=== PATIENT | female | born 1995 | race Caucasian/White ===

== ENCOUNTER → 2018-01-14 | Outpatient (CLI) | payer BC ==
[~2018-01-14] MED LIST: BCPILLS PO
== END | disposition home or self-care (01) ==
LOC: C.PAPS 18:05
PROVIDERS: ATTEND Physician Assistant
DX: Z01.419 Encounter for gynecological examination (general) (routine) without abnormal findings (principal)

== ENCOUNTER 2020-06-25 04:25 | Inpatient (IN) ==
[2020-06-25] MEDS ORDERED: OXYTOCIN 30 UNITS/500 ML BAG IV PRN ×2 (04:58→15:40)
[2020-06-25 05:17] LABS: Hemoglobin 13.6 g/dL (12.0-16.0); Mean Corpuscular Hemoglobin 30.4 pg (25-34); Mean Corpuscular Volume 87.2 fL (80-100); Mean Platelet Volume 11.8 fL (7.4-10.4); Platelet Count 179 K/uL (130-400); RDW Coefficient of Variation 12.5 % (11.5-14.5); RDW Standard Deviation 40.1 fL (36.4-46.3); Red Blood Count 4.47 M/uL (4.2-5.4); White Blood Count 10.51 K/uL (4.8-10.8)
[2020-06-25 05:35] LABS: Mean Corpuscular Hgb Conc 34.9 g/dL (32-36)
[2020-06-25] MEDS ORDERED: ePHEDrine sulfate 50 MG/ML AMP ONE (07:25)
[2020-06-25] MEDS ORDERED: BUPIVACAINE 0.25% 30 ML VIAL ONE (07:25)
[2020-06-25] MEDS ORDERED: fentaNYL 2MCG/ML ROPIVACAINE 1.25MG/ML 100 ML BAG EPI ONE (07:26)
[2020-06-25] MEDS ORDERED: fentaNYL citrate 100 MCG/2 ML VIAL ONE (07:26)
[2020-06-25] MEDS: LACTATED RINGER'S 1,000 ML IV PRN ×2 (07:30→08:32)
--- NOTE | 2020-06-25 08:16 | Anesthesiology Consultation ---
Date of Service June 25, 2020 Assessment & Plan (1) Encounter for pre-operative examination: Chart Review Chart Review: Patient NOT seen in Pre Admission Testing and Acceptable Risk for Labor Epidural Consults Requested none ASA ASA2 Proposed Anesthesia Anesthesia Type: Labor Epidural Risk / Benefits Reviewed With: PT / POA / Parent / Guardian, Accepts Plan and Informed Consent Obtained History Height/Weight Height: 5 ft 4 in Weight: 91.626 kg Allergies Allergy/AdvReac Type Severity Reaction Status Date / Time No Known Allergies Allergy Verified 06/22/20 16:29 Medications Home Medications Medication Instructions Recorded Confirmed Last Taken prenat.vits,indio,vjv-ndyn-ujruq 1 tab PO DAILY 11/20/19 06/25/20 06/24/20 Active Medications Generic Name Dose Route Start Last Admin Trade Name Freq PRN Reason Stop Dose Admin Lactated Ringer's 1,000 mls @ 125 mls/hr 06/25/20 04:58 06/25/20 08:32 Lr IV 06/27/20 04:57 125 mls/hr .Q8H PRN Administration L&D Protocol Protocol NPO Date Last Intake of Fluids: 06/25/20 Time Last Intake of Fluids: 08:56 Date Last Intake of Solids: 06/24/20 Time Last Intake of Solids: 17:00 Past Medical History Medical History Urinary tract infection Varicella vaccine Exercise / Class Metabolic Activity II 4-5 Yardwork/Stairs/Walk up hill Past Family History Family History Grandfather (Maternal) Dyslipidemia Other Hypertension Past Surgical History Surgical History [place] teeth removed Past Anesthesia History No Hx of Anesthesia Complications History of PONV No Hx of PONV Social History Smoking Status: Never smoker Hx Alcohol Use: No Hx Substance Use: No Review of Systems Negative for chest pain or shortness of breath. Patient denies history of abnormal bleeding or bleeding disorder. Patient denies active use of anticoagulants other than low dose aspirin. Patient denies numbness, tingling or weakness in lower extremities. Physical Exam Vital Signs Last Vital Signs Temp 36.9 C 06/25/20 07:05 Pulse 85 06/25/20 07:58 Resp 20 06/25/20 07:05 BP 124/85 06/25/20 07:53 Pulse Ox 99 06/25/20 07:58 Constitutional not obese (gravid) ENMT Mouth: no TMJ abnormality and oral opening not small Thyromental Distance: > or= 3.5 Finger Breadths Mallampati Class: II Neck normal visual inspection; neck extension not limited Respiratory normal respiratory effort Auscultation: lungs clear to auscultation bilaterally Cardiovascular Rate/Rhythm: regular rate and regular rhythm Heart Sounds: no murmur Neurologic moves all extremities Motor/Sensory: no sensory deficit Psychiatric Orientation: alert and oriented x 3 Testing Laboratory Results 06/25/20 05:05
--- NOTE | 2020-06-25 08:40 | History & Physical Report ---
Date of Service June 25, 2020 Assessment & Plan (1) Supervision of normal intrauterine in primigravida: 24yo G1 at 40 weeks GA. Labor. 1. Fetus: Cat 1 2. Labor: Pregressing. 3. Vitals: WNL 4. GBS negative Admission and Anticipated Discharge Date Admission Date: June 25, 2020 History of Present Illness Primary Care Provider: Sterling Al, 24yo G1 at 40 weeks GA. Presents for labor. Denies LOF, VB. Good FM. uncomplicated to date Chlamydia trachomatis RNA NOT DETECTED (NOT DETECTED) 11/27/19 Neisseria gonorrhoeae RNA NOT DETECTED (NOT DETECTED) 11/27/19 Labs Reviewed: declines cf/sma and panorama/quad 01/11/20- Blood Type A positive Antibody screen neg H&H 40.51/13.6 PLT 227 Rubella Immune RPR Non-reactive HIV Neg Hep B surface AG non-reactive Urine Culture low counts skin elias 1 hr gtt 78 28 week labs--ua neg, gtt 86, h/h 12.9/36.7 Allergies Allergy/AdvReac Type Severity Reaction Status Date / Time No Known Allergies Allergy Verified 06/22/20 16:29 Home Medications Home Medications Medication Instructions Recorded Confirmed Type prenat.vits,indio,eqd-hmym-nztxd 1 tab PO DAILY 11/20/19 06/25/20 History Patient History Medical History Urinary tract infection Varicella vaccine Surgical History [place] teeth removed Family History Grandfather (Maternal) Dyslipidemia Other Hypertension Social History (Updated 11/20/19 @ 15:09 by Amina Henry) Smoking Status: Never smoker Second Hand Exposure: No; Hx Alcohol Use: No Hx Substance Use: No Preferred Language: Peruvian Beliefs That Will Affect Care: None marital status: marital status details: Db Bennett (22) [phone] Current Living Situation: Spouse Current Living Situation Comment: lives with spouse, no pets current occupational status: employed 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 Other Information That Helps Us Care for You: No Feels Safe at Home: Yes Safety Concerns: Feels Safe At This Time Assistive Devices: None Physical Exam Genitourinary: OB Exam Abdomen: + vertex Manual OB Exam: + cervical dilati on 4 cm, + cervical effacement 100% and + station -1 OB Exam Monitor Tracing: + external FHT monitor used, + external uterine monitor used, + category I and + normal FHT variability Results & Data ([facility]) Vital Signs (Past 12 Hours) Vital Signs Temp Pulse Resp BP Pulse Ox 06/25/20 08:33 91 H 99 06/25/20 08:28 95 H 98 06/25/20 08:23 113 H 98 06/25/20 08:18 95 H 99 06/25/20 08:13 89 100 06/25/20 08:08 92 H 100 06/25/20 08:03 92 H 100 06/25/20 07:58 85 99 06/25/20 07:53 91 H 124/85 100 06/25/20 07:05 36.9 C 116 H 20 128/86 06/25/20 04:42 90 126/87 06/25/20 04:37 36.9 C 103 H 18 158/101 H 06/25/20 04:35 36.9 C 103 H 18 158/101 H Coding Level of Care Code None Diagnoses Supervision of normal intrauterine in primigravida Z34.00
[2020-06-25] MEDS ORDERED: PROMETHAZINE HCL 25 MG in SODIUM CHLORIDE 0.9% 50 ML IV PRN (09:12)
[2020-06-25] MEDS ORDERED: diphenhydrAMINE 50 MG/ML VIAL IV PRN (09:12)
[2020-06-25] MEDS ORDERED: NALOXONE HCL 0.4 MG/1 ML VIAL/CARP IV PRN (09:12)
[2020-06-25] MEDS ORDERED: ONDANSETRON INJ 2 MG/ML 2 ML VIAL IV PRN (09:12)
[2020-06-25] MEDS ORDERED: NALOXONE HCL 1 MG in SODIUM CHLORIDE 0.9% 1000ML 1,000 ML IV PRN (09:12)
[2020-06-25] MEDS ORDERED: fentaNYL 2MCG/ML ROPIVACAINE 1.25MG/ML 100 ML BAG EPI PRN (09:12)
[2020-06-25] MEDS ORDERED: ePHEDrine sulfate 50 MG/ML AMP IV PRN (09:12)
[2020-06-25] MEDS: CALCIUM CARBONATE 500 MG CHEWABLE TAB PO PRN ×2 (10:24→14:15)
--- NOTE | 2020-06-25 15:24 | Delivery Summary ---
Vaginal Delivery Summary Date of Service June 25, 2020 Vaginal Delivery Summary Spontaneous vaginal delivery over a second-degree tear patient had an epidural pushed baby in left occiput anterior position clear fluid no nuchal cord mouth and nares suctioned with bulb gentle traction no excessive force live vigorous cord clamped and cut cord blood obtained placenta removed with gentle traction IV Pitocin started second-degree tear repaired with 3-0 Vicryl sponge and instrument counts correct estimated blood loss 300 mL [facility] Vaginal Delivery Charge Procedure Anesthesia type: Epidural Labor Stage Duration Labor - Stage 1 Duration: 9.08 Labor - Stage 2 Duration: 3.35 Labor - Stage 3 Duration: 4 Total Length of Labor: 12.50
[2020-06-25] MEDS ORDERED: BENZOCAINE 20% AER SPR 82.5 GM CAN EXT PRN (15:40)
[2020-06-25] MEDS ORDERED: LACTATED RINGER'S 1,000 ML IV SCH (15:40)
[2020-06-25] MEDS ORDERED: bisacodyL 10 MG SUPP PR PRN (15:40)
[2020-06-25] MEDS ORDERED: SUPERCREAM 0.870% 15 GM JAR EXT PRN (15:40)
[2020-06-25] MEDS ORDERED: HYDROCORTISONE ACETATE 25 MG SUPP PR PRN (15:40)
[2020-06-25] MEDS ORDERED: DIPHTHERIA/TETANUS/PERTUSSIS 0.5 ML SYR/VIAL IM ONE (15:40)
[2020-06-25] MEDS ORDERED: ACETAMINOPHEN 325 MG TAB PO PRN (15:40)
[2020-06-25] MEDS ORDERED: oxyCODONE/ACETAMINOPHEN 5mg/325mg TAB PO PRN (15:40)
--- NOTE | 2020-06-25 15:58 | Anesthesia Procedure Note ---
Date of Service June 25, 2020 Anesthesia Post Epidural Note Vital Signs Vital Signs: Temp Pulse Resp BP Pulse Ox 37.1 C 100 H 20 133/78 98 06/25/20 13:02 06/25/20 15:47 06/25/20 15:31 06/25/20 15:47 06/25/20 14:53 Notes Mental Status: alert / awake / arousable and participated in evaluation Nausea / Vomiting: adequately controlled Pain: adequately controlled Airway Patency, RR, SpO2: stable & adequate BP & HR: stable & adequate Hydration State: stable & adequate Neuraxial Anesthesia: was administered and sensory block is resolving Anesthetic Complications: no major complications apparent and Pt Satisfied with anesthetic care Epidural: Removed without complications and With tip intact Notes: Epidural site clean, dry and intact. No signs of edema, erythema or bruising at insertion site. Pt instructed to request anesthesia if she has residual lower extremity numbness or if she develops lower extremity pain or weakness, back pain or headache.
[2020-06-25] MEDS: IBUPROFEN 600 MG TAB PO PRN (20:26)
[2020-06-25] MEDS: DOCUSATE SODIUM 100 MG CAP PO SCH (20:27)
[2020-06-26 06:34] LABS: Hematocrit (blood only) 32.7 % (37-47); Hemoglobin 11.4 g/dL (12.0-16.0); Mean Corpuscular Hgb Conc 34.9 g/dL (32-36); Mean Corpuscular Volume 88.9 fL (80-100); Mean Platelet Volume 11.2 fL (7.4-10.4); Platelet Count 133 K/uL (130-400); RDW Coefficient of Variation 12.9 % (11.5-14.5); RDW Standard Deviation 41.5 fL (36.4-46.3); Red Blood Count 3.68 M/uL (4.2-5.4); White Blood Count 11.69 K/uL (4.8-10.8)
--- NOTE | 2020-06-26 06:35 | Obstetrical Progress Note ---
Date of Service June 26, 2020 Assessment & Plan (1) Supervision of normal intrauterine in primigravida: Doing well no extremity pain breast-feeding continue current care Subjective Ambulation: ambulating normally Voiding: no voiding problems Diet Tolerance:: regular diet Lochia:: Small Feeding Type:: breast feeding Current Pain Level(1-10): 2 Results & Data ([facility]) Vital Signs (Past 12 Hours) Vital Signs Temp Pulse Resp BP 06/26/20 04:00 97.9 F 78 18 110/71 06/25/20 23:35 98.1 F 73 16 119/75 06/25/20 20:10 98.6 F 96 H 18 121/79 06/25/20 18:14 99.9 F H 99 H 20 115/80
[2020-06-26] MEDS ORDERED: NON-FORMULARY MEDICATION (Prenat.Vits,Cal,Min-Iron-Folic 1 TAB) PO SCH (09:00)
[2020-06-26] MEDS: PRENATAL VITAMIN 1 TAB PO SCH (09:28)
[2020-06-26] MEDS: IBUPROFEN 600 MG TAB PO PRN ×2 (09:28→19:56)
[2020-06-26] MEDS: DOCUSATE SODIUM 100 MG CAP PO SCH ×2 (09:28→19:57)
[2020-06-26] MEDS ORDERED: bisacodyL 5 MG TABEC PO SCH (20:00)
[2020-06-27 06:27] LABS: Hematocrit (blood only) 32.7 % (37-47); Hemoglobin 11.3 g/dL (12.0-16.0)
--- NOTE | 2020-06-27 07:57 | Obstetrical Progress Note ---
Date of Service <Song Sethi MD - Last Filed: 06/27/20 08:00> June 27, 2020 Assessment & Plan <Song Sethi MD - Last Filed: 06/27/20 08:00> (1) : - PNL: Rh pos, RI, GBS neg, COVID neg - Feels well today. Eating well, voiding well, ambulating well - Pain well controlled with ibuprofen 600mg Q4H PRN - Routine care - After discharge will have 6 week follow-up with Dr. Ham - Ready for D/C today Subjective <Song Sethi MD - Last Filed: 06/27/20 08:00> Haleigh is a 24 y/o female who is PPD #2 following at 39+ weeks. She reports feeling well overall this morning. Light abdominal cramping and 0/10 pain well managed on analgesics. Voiding well. Tolerating meals overnight without difficulty. Patient has been able to ambulate some. Is passing gas and had bowel movement. Has persistent lochia with some improvement this morning. Currently bottle feeding. Review of Systems Denies fever or chills. Denies shortness of breath or cough. Denies chest pain. Denies breast pain. Denies dysuria. Denies leg pain or leg swelling. Denies headache or changes in vision. Physical Exam <Song Sethi MD - Last Filed: 06/27/20 08:00> General: Alert, oriented. No acute distress. Cardiac: Regular rate and rhythm. No murmurs. Respiratory: Clear to auscultation bilaterally a/p, no wheezes/rales/rhonchi. No increased work of breathing. Symmetrical chest rise. No respiratory distress. Abdomen: Soft, nontender, nondistended. Bowel sounds present. Uterus: Uterine fundus firm, palpable 2 cm below umbilicus. Lower Extremities: No lower extremity edema or swelling. No deep calf pain. Jeferson's negative bilaterally. Results & Data ([facility]) <Song Sethi MD - Last Filed: 06/27/20 08:00> Vital Signs (Past 12 Hours) Vital Signs Temp Pulse Resp BP Pulse Ox 10/18/20 23:10 36.8 C 78 18 112/69 99 <Edu Ham MD, FACOG - Last Filed: 06/27/20 08:16> Co-Signing Physician Notes Resident Physician Supervision Note: I was present with [Name of resident] during the history and exam. I discussed the case with the resident and agree with the findings and plan as documented in the note. Any exceptions or clarifications are listed here: [None] Documented By: Edu Ham MD, FACOG Resident Activity Tracking <Song Sethi MD - Last Filed: 06/27/20 08:00> Resident Involvement: Resident Care Provided Care Provided: OB Delivery
[2020-06-27] MEDS: PRENATAL VITAMIN 1 TAB PO SCH (09:18)
[2020-06-27] MEDS: DOCUSATE SODIUM 100 MG CAP PO SCH (09:18)
== END 2020-06-27 11:25 | disposition home or self-care (01) | DRG 807 ==
LOC: OPB 04:25 → 4S1 04:27 → 4S2 18:29

== ENCOUNTER 2022-11-14 21:54 | Inpatient (IN) ==
[2022-11-15] MEDS ORDERED: OXYTOCIN 30 UNITS/500 ML BAG IV PRN ×2 (00:01→05:28)
[2022-11-15] MEDS ORDERED: LIDOCAINE 1% LOCAL 20 ML VIAL INFIL PRN (00:01)
[2022-11-15 01:03] LABS: Hematocrit (blood only) 35.4 % (37.0-47.0); Hemoglobin 12.6 g/dl (12.0-16.0); Mean Corpuscular Hemoglobin 30.9 pg (25.0-34.0); Mean Corpuscular Hgb Conc 35.6 g/dL (32.0-36.0); Mean Corpuscular Volume 86.8 fL (80.0-100.0); Mean Platelet Volume 11.8 fL (9.4-12.4); Platelet Count 181 K/uL (130-400); RDW Coefficient of Variation 12.4 % (11.5-14.5); Red Blood Count 4.08 M/uL (4.20-5.40); White Blood Count 9.99 K/ul (4.8-10.8)
[2022-11-15] MEDS: LACTATED RINGER'S 1,000 ML IV PRN ×2 (01:09→02:36)
[2022-11-15] MEDS ORDERED: ePHEDrine sulfate 50 MG/ML AMP ONE (01:13)
[2022-11-15] MEDS ORDERED: fentaNYL citrate 100 MCG/2 ML VIAL ONE (01:14)
[2022-11-15] MEDS ORDERED: SODIUM CHLORIDE 0.9% INJ 10 ML VIAL ONE (01:14)
[2022-11-15] MEDS ORDERED: BUPIVACAINE 0.25% 30 ML VIAL ONE (01:14)
[2022-11-15] MEDS ORDERED: LIDOCAINE 2%/EPINEPHRINE 1:200,000 20 ML SDV ONE (01:14)
[2022-11-15] MEDS ORDERED: fentaNYL 2MCG/ML ROPIVACAINE 1.25MG/ML 100 ML BAG EPI ONE (01:15)
[2022-11-15] MEDS ORDERED: ONDANSETRON INJ 2 MG/ML 2 ML VIAL IV PRN (01:35)
[2022-11-15] MEDS ORDERED: ePHEDrine sulfate 50 MG/ML AMP IV PRN (01:35)
[2022-11-15] MEDS ORDERED: NALOXONE HCL 1 MG in SODIUM CHLORIDE 0.9% 1000ML 1,000 ML IV PRN (01:35)
[2022-11-15] MEDS ORDERED: fentaNYL 2MCG/ML ROPIVACAINE 1.25MG/ML 100 ML BAG EPI PRN (01:35)
[2022-11-15] MEDS ORDERED: diphenhydrAMINE 50 MG/ML VIAL IV PRN (01:35)
[2022-11-15] MEDS ORDERED: NALBUPHINE HCL INJ 10 MG/ML AMP IV PRN (01:35)
[2022-11-15] MEDS ORDERED: NALOXONE HCL 0.4 MG/1 ML VIAL/CARP IV PRN (01:35)
--- NOTE | 2022-11-15 01:35 | Anesthesiology Consultation ---
Date of Service November 15, 2022 Assessment & Plan ASA ASA2 Proposed Anesthesia Anesthesia Type: Labor Epidural Risk / Benefits Reviewed With: PT / POA / Parent / Guardian, Accepts Plan and Informed Consent Obtained History Height/Weight Height: 5 ft 5 in Weight: 94.347 kg Allergies Allergy/AdvReac Type Severity Reaction Status Date / Time No Known Allergies Allergy Verified 11/14/22 08:44 Medications Home Medications Medication Instructions Recorded Confirmed Last Taken prenat.vits,indio,ddz-roai-dfihc 1 tab PO DAILY 11/20/19 11/14/22 11/13/22 Active Medications Generic Name Dose Route Start Last Admin Trade Name Freq PRN Reason Stop Dose Admin Lactated Ringer's 1,000 mls @ 125 mls/hr 11/15/22 00:01 11/15/22 01:09 Lr IV 11/17/22 00:00 999 mls/hr .Q8H PRN Administration L&D Protocol Protocol Ropivacaine 100 ml 11/15/22 01:35 11/15/22 01:57 Fentanyl 2mcg/Ml Ropivacaine 1.25mg/Ml 100 Ml Bag EPI 11/16/22 01:34 100 ml PRN PRN Administration Pain R/T Labor Protocol Past Medical History Medical History Encounter for pre-operative examination Supervision of normal intrauterine in primigravida Urinary tract infection Varicella vaccine Exercise / Class Metabolic Activity II 4-5 Yardwork/Stairs/Walk up hill Past Family History Family History Grandfather (Maternal) Dyslipidemia Other Heart disease Hypertension Denies family history of Ovarian cancer Breast cancer Colorectal cancer Past Surgical History Surgical History [place] teeth removed Past Anesthesia History No Hx of Anesthesia Complications and No Family Hx of Anesthesia Complications History of PONV No Hx of PONV and No Hx of Motion Sickness Social History Smoking Status: Never smoker Hx Alcohol Use: No Hx Substance Use: No Review of Systems denies fever/cough/ colds/ chest pain/ SOB/ ANGELES denies ANGELES Physical Exam Vital Signs Last Vital Signs Temp 36.8 C 11/15/22 01:53 Pulse 100 H 11/15/22 02:07 Resp 16 11/15/22 01:53 BP 103/54 L 11/15/22 02:07 Pulse Ox 96 11/15/22 02:06 ENMT Mouth: no TMJ abnormality and no dentition abnormality Thyromental Distance: > or= 3.5 Finger Breadths Mallampati Class: II Neck neck extension not limited Respiratory normal respiratory effort; no respiratory distress Auscultation: lungs clear to auscultation bilaterally Cardiovascular Rate/Rhythm: regular rate and regular rhythm Neurologic moves all extremities Psychiatric Orientation: alert and oriented x 3 Testing Laboratory Results 11/15/22 00:18
[2022-11-15] MEDS ORDERED: CALCIUM CARBONATE 500 MG CHEWABLE TAB PO PRN (02:59)
[2022-11-15] MEDS ORDERED: ACETAMINOPHEN 325 MG TAB PO PRN (05:28)
[2022-11-15] MEDS ORDERED: bisacodyL 10 MG SUPP PR PRN (05:28)
[2022-11-15] MEDS ORDERED: DIPHTHERIA/TETANUS/PERTUSSIS 0.5mL SYR/VIAL (Age 7+yrs) IM ONE (05:28)
[2022-11-15] MEDS ORDERED: HYDROCORTISONE ACETATE 25 MG SUPP PR PRN (05:28)
[2022-11-15] MEDS ORDERED: BENZOCAINE 20% AER SPR 82.5 GM CAN EXT PRN (05:28)
--- NOTE | 2022-11-15 07:29 | Anesthesia Procedure Note ---
Date of Service November 15, 2022 Anesthesia Post Epidural Note Vital Signs Vital Signs: Temp Pulse Resp BP Pulse Ox 97.9 F 91 H 16 131/84 96 11/15/22 05:26 11/15/22 06:56 11/15/22 05:26 11/15/22 06:56 11/15/22 05:26 Notes Mental Status: alert / awake / arousable and participated in evaluation Nausea / Vomiting: adequately controlled Pain: adequately controlled Airway Patency, RR, SpO2: stable & adequate BP & HR: stable & adequate Hydration State: stable & adequate Neuraxial Anesthesia: was administered and sensory block is resolving Anesthetic Complications: no major complications apparent and Pt Satisfied with anesthetic care Epidural: Removed without complications and With tip intact
[2022-11-15] MEDS: PRENATAL VITAMIN 1 TAB PO SCH (08:17)
[2022-11-15] MEDS: DOCUSATE SODIUM 100 MG CAP PO SCH ×2 (08:17→19:56)
[2022-11-15] MEDS: FERROUS SULFATE 325 MG TAB PO SCH (08:17)
--- NOTE | 2022-11-15 08:58 | Delivery Summary ---
DATE OF SERVICE: 11/15/2022. PROCEDURE: Normal spontaneous vaginal delivery with right labial laceration repair. SURGEON: Gualebrto Dumont MD. PREOPERATIVE DIAGNOSES: 1. Single intrauterine at 39+ weeks gestational age. 2. Labor. POSTOPERATIVE DIAGNOSES: 1. Single intrauterine at 39+ weeks gestational age. 3. Labor. 2. Status post procedure. ESTIMATED BLOOD LOSS: 200 mL. DRAINS: None. FLUIDS: Continuous lactated Ringer. URINE OUTPUT: Not measured. COMPLICATIONS: None. FINDINGS: Viable with weight and Apgars pending. DESCRIPTION OF PROCEDURE: The patient progressed to 10 cm dilated, positive 2 station, pushed over i ntact perineum with epidural anesthesia, delivered a viable with weight and Apgars as noted a simi. Head of the delivered in EHSAN position, restituted to left transverse. A single nuchal cord was noted, which was easily reduced. Body and shoulders quickly followed. was noted t o be vigorous soon after delivery and 1 minute delayed cord clamping was initiated. Cord was then do uble clamped and cut. remained on maternal abdomen. Cord blood was obtained. Attention was then turned to delivery of the placenta, which was delivered intact, 3-vessel cord, gentle cord trac tion. On inspection of the perineum, vagina, cervix, there was noted to be a right labial laceration , which was repaired with 3-0 Vicryl in continuous running stitch. Needle, sponge, and instrument co unts were correct at the completion of the case. Both mother and stable in the immediate pos t-delivery period. Job ID: [id number]
[2022-11-15] MEDS: IBUPROFEN 600 MG TAB PO PRN ×2 (16:55→21:43)
[2022-11-16] MEDS: IBUPROFEN 600 MG TAB PO PRN (03:24)
--- NOTE | 2022-11-16 06:30 | Obstetrical Progress Note ---
Date of Service <Estefanía Purcell MD - Last Filed: 11/16/22 06:31> November 16, 2022 Assessment & Plan <Estefanía Purcell MD - Last Filed: 11/16/22 06:31> (1) care following vaginal delivery: 27 y/o female presented in labor now PPD1 after early AM delivery 11/15. GBS neg, RI, Rh pos. Tolerating PO. Satisfactory post progress. Encourage ambulation. <Sophy Garcia MD, FACOG - Last Filed: 11/16/22 06:58> (1) care following vaginal delivery: Subjective <Estefanía Purcell MD - Last Filed: 11/16/22 06:31> Ambulation: ambulating normally Voiding: no voiding problems Passing Gas:: Yes Diet Tolerance:: regular diet Lochia:: Small Feeding Type:: bottle feeding Physical Exam <Estefanía Purcell MD - Last Filed: 11/16/22 06:31> Gen: well appearing female in NAD HEENT: AT NC Resp: no increased work of breathing CV: clinically well perfused, no calf tenderness : uterine firm, non tender at the level of the umbilicus Psych: appropriate mood and affect Neuro: alert and oriented Results & Data ([facility]) <Estefanía Purcell MD - Last Filed: 11/16/22 06:31> Vital Signs (Past 12 Hours) Vital Signs Temp Pulse Resp BP Pulse Ox O2 Del Method 11/16/22 03:20 36.4 C L 60 18 110/70 98 Room Air 11/15/22 23:00 36.6 C 72 18 118/77 98 Room Air 11/15/22 20:00 36.6 C 80 18 123/76 98 Room Air Laboratory Results 11/15/22 00:18 <Sophy Garcia MD, FACOG - Last Filed: 11/16/22 06:58> Co-Signing Physician Notes Resident Physician Supervision Note: I was present with Dr. Purcell during the history and exam. I discussed the case with the resident and agree with the findings and plan as documented in the note. Any exceptions or clarifications are listed here: stable, doing well desires dc home. instructions reviewed. denies questions. breast feeding. abd soft ff 2down nt, nt calves. f/u 6 wk pp. Documented By: Sophy Garcia MD, FACOG Resident Activity Tracking <Estefanía Purcell MD - Last Filed: 11/16/22 06:31> Resident Involvement: Resident Care Provided Care Provided: OB Delivery
[2022-11-16] MEDS: DOCUSATE SODIUM 100 MG CAP PO SCH (08:05)
[2022-11-16] MEDS: FERROUS SULFATE 325 MG TAB PO SCH (08:05)
[2022-11-16] MEDS: PRENATAL VITAMIN 1 TAB PO SCH (08:05)
[2022-11-16] MEDS ORDERED: bisacodyL 5 MG TABEC PO SCH (20:00)
== END 2022-11-16 12:35 | disposition home or self-care (01) | DRG 807 ==
LOC: OPB 21:54 → 4S1 21:57 → 4E2 11-15 07:06

== ENCOUNTER 2024-09-14 03:00 | Inpatient (IN) ==
[2024-09-14] MEDS ORDERED: OXYTOCIN 30 UNITS/NSS 30 UNITS/500 ML BAG IV PRN (05:57)
[2024-09-14] MEDS ORDERED: LIDOCAINE 1% LOCAL 20 ML VIAL INFIL PRN (05:57)
[2024-09-14] MEDS: SODIUM CHLORIDE 0.9% 1,000 ML IV SCH (06:05)
[2024-09-14 06:18] LABS: Hematocrit (blood only) 38.3 % (37.0-47.0); Hemoglobin 13.3 g/dl (12.0-16.0); Mean Corpuscular Hemoglobin 30.4 pg (25.0-34.0); Mean Corpuscular Hgb Conc 34.7 g/dL (32.0-36.0); Mean Corpuscular Volume 87.6 fL (80.0-100.0); Mean Platelet Volume 10.8 fL (9.4-12.4); Platelet Count 165 K/uL (130-400); RDW Coefficient of Variation 12.7 % (11.5-14.5); RDW Standard Deviation 40.5 fL (36.4-46.3); Red Blood Count 4.37 M/uL (4.20-5.40); White Blood Count 10.56 K/ul (4.8-10.8)
[2024-09-14] MEDS ORDERED: SODIUM CHLORIDE 0.9% PF INJ 10 ML VIAL EPI STA (06:20)
[2024-09-14] MEDS ORDERED: NALBUPHINE HCL INJ 10 MG/ML AMP IV PRN (06:20)
[2024-09-14] MEDS ORDERED: NALOXONE HCL 0.4 MG/1 ML VIAL/CARP IV PRN (06:20)
[2024-09-14] MEDS ORDERED: LIDOCAINE 2%/EPINEPHRINE 1:200,000 20 ML PF EPI STA (06:20)
[2024-09-14] MEDS ORDERED: fentaNYL citrate PF 100 MCG/2 ML VIAL EPI PRN (06:20)
[2024-09-14] MEDS ORDERED: BUPIVACAINE 0.25% PF 30 ML VIAL EPI STA (06:20)
[2024-09-14] MEDS ORDERED: NALOXONE HCL 1 MG in SODIUM CHLORIDE 0.9% 1,000 ML IV PRN (06:20)
[2024-09-14] MEDS ORDERED: SODIUM CHLORIDE 0.9% PF INJ 10 ML VIAL EPI PRN (06:20)
[2024-09-14] MEDS ORDERED: diphenhydrAMINE 50 MG/ML VIAL IV PRN (06:20)
[2024-09-14] MEDS ORDERED: fentaNYL citrate PF 100 MCG/2 ML VIAL EPI STA (06:20)
[2024-09-14] MEDS ORDERED: fentANYL 2 MCG/ML BUPIVacaine 0.125%-NSS 100ML BAG EPI PRN (06:20)
[2024-09-14] MEDS ORDERED: ONDANSETRON INJ 2 MG/ML 2 ML VIAL IV PRN (06:20)
[2024-09-14] MEDS ORDERED: BUPIVACAINE 0.25% PF 30 ML VIAL EPI PRN (06:20)
[2024-09-14] MEDS ORDERED: ePHEDrine sulfate 50 MG/ML AMP IV PRN (06:20)
[2024-09-14] MEDS ORDERED: ROPIVACAINE 0.5% PF 5 MG/ML 20 ML VIAL EPI PRN (06:20)
[2024-09-14] MEDS ORDERED: LIDOCAINE 2% MPF LOCAL 5 ML VIAL EPI PRN (06:20)
--- NOTE | 2024-09-14 06:21 | Anesthesiology Consultation ---
Date of Service September 14, 2024 Assessment & Plan (1) Encounter for pre-operative examination: Chart Review Chart Review: Patient NOT seen in Pre Admission Testing and Acceptable Risk for Labor Epidural Consults Requested none History Height/Weight Height: 5 ft 5 in Weight: 82.1 kg Allergies Allergy/AdvReac Type Severity Reaction Status Date / Time No Known Allergies Allergy Verified 09/08/24 11:04 Medications Home Medications Medication Instructions Recorded Confirmed Last Taken prenat.vits,indio,ily-sbql-ziuhc 1 tab PO DAILY 11/20/19 09/14/24 09/12/24 Active Medications Generic Name Dose Route Start Last Admin Trade Name Freq PRN Reason Stop Dose Admin Sodium Chloride 1,000 mls @ 50 mls/hr 09/14/24 06:15 09/14/24 06:05 Nss IV 09/15/24 06:14 999 mls/hr .Q20H JUAN LUIS Administration Past Medical History Medical History Encounter for pre-operative examination Varicella vaccine Urinary tract infection Past Family History Family History Grandfather (Maternal) Dyslipidemia Other Heart disease Hypertension Denies family history of Ovarian cancer Breast cancer Colorectal cancer Past Surgical History Surgical History [place] teeth removed Social History Smoking Status: Never smoker Do You Dip or Chew Tobacco: No Hx Alcohol Use: No Hx Substance Use: No Physical Exam Vital Signs Last Vital Signs Temp 36.7 C 09/14/24 03:22 Pulse 93 H 09/14/24 06:43 Resp 18 09/14/24 03:22 BP 122/63 09/14/24 06:43 Pulse Ox 99 09/14/24 06:39 Testing Laboratory Results 09/14/24 06:05
[2024-09-14] MEDS: fentaNYL citrate PF 100 MCG/2 ML VIAL ONE (06:42)
[2024-09-14] MEDS: LIDOCAINE 2%/EPINEPHRINE 1:200,000 20 ML PF ONE (06:43)
[2024-09-14] MEDS: BUPIVACAINE 0.25% PF 30 ML VIAL ONE (06:43)
[2024-09-14] MEDS: fentANYL 2 MCG/ML BUPIVacaine 0.125%-NSS 100ML BAG ONE (06:45)
[2024-09-14] MEDS: OXYTOCIN 30 UNITS/NSS 30 UNITS/500 ML BAG IV PRN (07:19)
--- NOTE | 2024-09-14 07:28 | History & Physical Report ---
Date of Service September 14, 2024 Assessment & Plan (1) Active labor: Plan: 29 yo at 39 2/7 wga presents in labor VSS Fetus cat 1 desires epidural Admission and Anticipated Discharge Date Admission Date: September 14, 2024 History of Present Illness Chief Complaint: ctx Primary Care Provider: Sterling Al DO 29 yo presents w/ ctx increasing in frequency and intnsity. 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 Date GA wks Lbr Lgth wt Sex Type del Anes Place Del Prov ? Comment 06/25/20 40 8lb M Epidural [facility] Dr. Ham No 11/15/22 39 7lb 11oz F Epid ural [facility] Dr. Julia Joyner Allergies Allergy/AdvReac Type Severity Reaction Status Date / Time No Known Allergies Allergy Verified 09/08/24 11:04 Home Medications Medication Instructions Recorded Confirmed Type prenat.vits,indio,fci-txhz-jvqzp 1 tab PO DAILY 11/20/19 09/14/24 History Patient History Medical History Encounter for pre-operative examination Varicella vaccine Urinary tract infection Surgical History [place] teeth removed Family History Grandfather (Maternal) Dyslipidemia Other Heart disease Hypertension Denies family history of Ovarian cancer Breast cancer Colorectal cancer Social History Smoking Status: Never smoker Second Hand Exposure: No; Do You Dip or Chew Tobacco: No; Hx Alcohol Use: No Hx Substance Use: No Preferred Language: [place] Islander Communication Ability: Effective Classification And Treatment Director Required: No Beliefs That Will Affect Care: None marital status: marital status details: Db Bennett (27) [phone] Current Living Situation: Spouse and Family Current Living Situation Comment: lives with spouse, 2 children, no pets current occupational status: unemployed 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 Other Information That Helps Us Care for You: No Feels Safe at Home: Yes Safety Concerns: Feels Safe At This Time Assistive Devices: Glasses Physical Exam Genitourinary: OB Exam Monitor Tracing: + external FHT monitor used, + external uterine monitor used (q5) and + category I (130/mod/+accel/-decel) 2cm by RN on admit Results & Data Vital Signs (Past 12 Hours) Vital Signs Temp Pulse Resp BP Pulse Ox 09/14/24 07:21 113 H 108/49 L 09/14/24 07:19 74 98 09/14/24 07:14 113 H 100 09/14/24 07:09 101 H 100 09/14/24 07:06 80 124/56 L 09/14/24 07:05 18 09/14/24 07:05 98.4 F 63 18 123/60 09/14/24 07:04 75 119/59 L 100 09/14/24 07:03 86 121/58 L 09/14/24 07:02 85 117/59 L 09/14/24 07:00 113/58 L 09/14/24 06:59 77 110/55 L 99 09/14/24 06:58 77 110/60 09/14/24 06:57 71 109/55 L 09/14/24 06:56 70 09/14/24 06:56 113/60 09/14/24 06:56 72 113/63 09/14/24 06:55 116 H 124/58 L 09/14/24 06:54 79 99 09/14/24 06:53 103 H 119/58 L 09/14/24 06:52 88 123/65 09/14/24 06:51 99 H 119/57 L 09/14/24 06:50 106 H 125/60 09/14/24 06:49 108 H 120/59 L 100 09/14/24 06:48 87 118/66 09/14/24 06:47 82 116/62 09/14/24 06:46 90 121/71 09/14/24 06:45 98 H 114/66 09/14/24 06:44 81 114/65 99 09/14/24 06:43 93 H 122/63 09/14/24 06:42 94 H 109/55 L 09/14/24 06:41 83 120/55 L 09/14/24 06:40 94 H 124/70 09/14/24 06:39 96 H 99 09/14/24 06:34 111 H 99 01/06/25 06:33 117 H 154/95 H 09/14/24 06:29 96 H 99 09/14/24 06:24 92 H 99 09/14/24 06:19 81 100 09/14/24 06:14 117 H 98 09/14/24 06:09 100 H 99 09/14/24 03:26 67 117/79 09/14/24 03:22 98.1 F 18 Coding Level of Care Code None Diagnoses Active labor
[2024-09-14] MEDS ORDERED: oxyCODONE/ACETAMINOPHEN 5mg/325mg TAB PO PRN (07:33)
[2024-09-14] MEDS ORDERED: HYDROCORTISONE ACETATE 25 MG SUPP PR PRN (07:33)
[2024-09-14] MEDS ORDERED: bisacodyL 10 MG SUPP PR PRN (07:33)
--- NOTE | 2024-09-14 07:35 | Delivery Summary ---
Vaginal Delivery Summary Date of Service September 14, 2024 Vaginal Delivery Summary [facility] PREOPERATIVE DIAGNOSIS: 1. Single intrauterine at 39 2/7 wga 2. Labor POSTOPERATIVE DIAGNOSIS: 1. Single intrauterine at 39 2/7 wga 2. Labor 3. Delivered PROCEDURE: 1. Normal spontaneous vaginal delivery. SURGEON: Lashay Gomez MD ANESTHESIA: Epidural. QUANTITATIVE BLOOD LOSS: 5 mL FLUIDS: Continuous LR. URINE OUTPUT: None. COMPLICATIONS: None. CONDITION: Stable. INDICATIONS: 29 yo at 39 2/7 wga presented with contractions increasing in frequency and intensity. She received an epidural for pain control and underwent srom and desired to push FINDINGS: A viable female , weight pending with Apgars of 8 and 9 at 1 and 5 minutes respectively. SPECIMEN: Cord blood OPERATIVE REPORT: The patient progressed to 10 cm, 100% effaced and +2 station, pushed over intact perineum with anesthesia to deliver a viable female , weight and Apgars as above. Head of delivered in DENIA position. No nuchal cord was present. Body and shoulders were delivered without difficulty. was delivered to maternal abdomen and nursing staff. Delayed cord clamping was performed for 60 seconds. Cord was clamped and cut. Cord blood was obtained. Placenta delivered spontaneously intact with 3-vessel cord. IV oxytocin and fundal massage were given for excellent hemostasis. Vagina, cervix, perineum, and placenta were inspected. Hemostatic vaginal abrasion did not need repaired. Sponge and needle counts correct x2. No sponges were left behind. Mother and stable in immediate period. [facility] Vaginal Delivery Charge Vaginal Delivery Codes: 70617 global code for the antepartum, delivery, and post- Delivery Type Details: [facility]
[2024-09-14] MEDS: DIPHTHER/TETAN/PERTUS Vaccine (Tdap, Adol/Adult) 0.5mL IM ONE (07:58)
[2024-09-14] MEDS: ePHEDrine sulfate 50 MG/ML AMP ONE (07:59)
[2024-09-14] MEDS: SODIUM CHLORIDE 0.9% PF INJ 10 ML VIAL ONE (07:59)
[2024-09-14] MEDS: PRENATAL VITAMIN 1 TAB PO SCH (08:34)
[2024-09-14] MEDS: DOCUSATE SODIUM 100 MG CAP PO SCH (08:36)
--- NOTE | 2024-09-14 08:47 | Anesthesia Procedure Note ---
Date of Service September 14, 2024 Anesthesia Post Epidural Note Vital Signs Vital Signs: Temp Pulse Resp BP Pulse Ox 36.7 C 61 18 112/65 98 09/14/24 08:30 09/14/24 08:45 09/14/24 08:30 09/14/24 08:45 09/14/24 07:24 Pain Intensity Abdomen: Pain Intensity: 0 Notes Mental Status: alert / awake / arousable and participated in evaluation Nausea / Vomiting: adequately controlled Pain: adequately controlled Airway Patency, RR, SpO2: stable & adequate BP & HR: stable & adequate Hydration State: stable & adequate Neuraxial Anesthesia: was administered and sensory block is resolving Anesthetic Complications: no major complications apparent and Pt Satisfied with anesthetic care Epidural: Removed without complications and With tip intact
[2024-09-14] MEDS: BENZOCAINE 20% SPRY 85 APPLN/85 GM CAN EXT PRN (10:04)
[2024-09-14] MEDS: IBUPROFEN 600 MG TAB PO PRN (12:04)
[2024-09-14] MEDS: ACETAMINOPHEN 325 MG TAB PO PRN (15:20)
[2024-09-14 20:08] VITALS: O2SAT 97
[2024-09-14 23:11] VITALS: PULSE 64; RESP 16
[2024-09-15 04:30] VITALS: BP 120/77; TEMP 98.6
[2024-09-15 06:20] LABS: Hematocrit (blood only) 33.9 % (37.0-47.0); Hemoglobin 11.9 g/dl (12.0-16.0); Mean Corpuscular Hemoglobin 31.2 pg (25.0-34.0); Mean Corpuscular Hgb Conc 35.1 g/dL (32.0-36.0); Mean Corpuscular Volume 88.7 fL (80.0-100.0); Platelet Count 142 K/uL (130-400); RDW Coefficient of Variation 13.1 % (11.5-14.5); RDW Standard Deviation 41.7 fL (36.4-46.3); Red Blood Count 3.82 M/uL (4.20-5.40); White Blood Count 9.08 K/ul (4.8-10.8)
--- NOTE | 2024-09-15 06:55 | Obstetrical Progress Note ---
Date of Service September 15, 2024 Assessment & Plan (1) Normal vaginal delivery: Plan Plan: Both mom and baby doing well. Discharge today as per protocol. Admission and Anticipated Discharge Date Admission Date: September 14, 2024 Supervising Physician Co-Signing Physician Notes Resident Physician Supervision Note: I was present with Dr. Colin during the history and exam. I discussed the case with the resident and agree with the findings and plan as documented in the note. Any exceptions or clarifications are listed here: PPD#1 doing well. DC home. Instructions reviewed. Followup 6w PP. Documented By: Jazmine Arias, Subjective 1 Day following for A0 at 39+2 week POG. No active complains Both mom and baby doing well. Pain: Complains of no pain Lochia: Moderate Diet: Regular Ob diet Gas: Passing Peeing: Normal, no bladder distension Ambulation: Normally Review of Systems Review of Systems: As per HPI Physical Exam Physical Exam: General: Alert and oriented. No acute distress. CVS: S1 S2+ No murmurs, regular rhythm. Respiratory: CTA bilaterally. No rhonchi, wheezes, or crackles. No increased work of breathing. Abdomen: Bowel sound +. Soft, nontender Uterus: Fundus firm and palpable few cm below the umbilicus. Lower extremities: No LE edema. No deep calf pain. Results & Data Vital Signs (Past 12 Hours) Vital Signs Temp Pulse Resp BP Pulse Ox O2 Del Method 09/15/24 03:15 37.0 C 64 16 120/77 97 Room Air 09/14/24 23:10 36.8 C 64 16 118/73 97 Room Air 09/14/24 20:00 37.1 C 70 18 122/77 97 Room Air
[2024-09-15] MEDS ORDERED: bisacodyL 5 MG TABEC PO SCH (20:00)
== END 2024-09-15 10:30 | disposition home or self-care (01) | DRG 807 ==
LOC: OPB 03:00 → 4S1 03:05 → 4E2 10:00